=== PATIENT | female | born 1990 | race American Indian/Alaskan Native ===

== ENCOUNTER 2021-07-18 22:26 | Emergency (ER) | payer BC ==
[2021-07-18 22:36] VITALS: BP 121/95
[2021-07-19] MEDS ORDERED: SODIUM CHLORIDE 0.9% 1000 ML 1,000 ML IV ONE (03:39)
[2021-07-19 04:37] LABS: Hematocrit 23.5 % (30.3-42.9); Mean Corpuscular HGB Conc 30 % (30-34); Mean Corpuscular Volume 60 fl (79-97); Platelet Count 359 K/mm3 (140-440); Red Blood Count 3.94 M/mm3 (3.65-5.03); Red Cell Distribution Width 19.7 % (13.2-15.2)
[2021-07-19 04:40] LABS: Alanine Aminotransferase 11 units/L (7-56); Albumin 4.4 g/dL (3.9-5); Blood Urea Nitrogen 8 mg/dL (7-17); Calcium 10.6 mg/dL (8.4-10.2); Hemolysis Index 0
--- NOTE | 2021-07-19 04:43 | Emergency Department Report ---
ED General Adult HPI - General Chief complaint: Back Pain/Injury Stated complaint: BODY PAIN,MARLO,DIZZY, AND VOMITING Time Seen by Provider: 07/19/21 03:39 Source: patient Mode of arrival: Ambulatory Limitations: No Limitations - History of Present Illness Initial comments: Patient 30-year-old female who presents for generalized body aches and chills x5 days. Patient denies suspicious transplant patient denies suspicious contacts patient denies poroductive cough. there is no wheezing or stridor. Patient is tolerating p.o. hydration at this time. Patient has history of HIV positive, asthma. There is no cough no wheezing no stridor. Symptoms are exacerbated by nothing tried. Symptoms are relieved by nothing tried. - Related Data Allergies Allergy/AdvReac Type Severity Reaction Status Date / Time Penicillins Allergy Hives Verified 07/18/21 22:37 ED Review of Systems ROS: Stated complaint: BODY PAIN,MARLO,DIZZY, AND VOMITING Other details as noted in HPI ED Past Medical Hx - Past Medical History Previous Medical History?: Yes Hx Asthma: Yes Hx HIV: Yes Additional medical history: HIV - Surgical History Past Surgical History?: Yes Additional Surgical History: fibroid surgery ED Physical Exam - General Limitations: No Limitations ED Course Vital Signs 07/18/21 22:35 Temperature 99.0 F Pulse Rate 103 H Respiratory 16 Rate Blood Pressure 121/95 O2 Sat by Pulse 100 Oximetry ED Medical Decision Making - Lab Data Result diagrams: 07/19/21 03:49 07/19/21 03:49 Critical care attestation.: If time is entered above; I have spent that time in minutes in the direct care of this critically ill patient, excluding procedure time. ED Disposition Condition: Stable
[2021-07-19 05:06] LABS: BUN/Creatinine Ratio 11
[2021-07-19] MEDS: ACETAMINOPHEN 500 MG TAB PO ONE ×2 (05:12→05:14)
[2021-07-19 05:31] LABS: Eosinophils % (Manual) 0 % (0.0-4.3); Total Cells Counted 100
[2021-07-19 05:32] LABS: Hypochromasia 2+
[2021-07-19 05:33] LABS: Anisocytosis 1+; Platelet Estimate Consistent w Auto
== END 2021-07-19 09:09 | disposition left against medical advice (07) ==
LOC: ED 22:26
DX: R52 Pain, unspecified (principal); Z53.21 Procedure and treatment not carried out due to patient leaving prior to being seen by health care provider
CPT/HCPCS: 36415; 80053; 85007; 85025; J7030